=== PATIENT | male | born 2000 | race Caucasian/White ===

== ENCOUNTER 2022-08-19 20:45 | Emergency (ER) | payer BC ==
[~2022-08-19] VITALS: Ht 177.8 cm; Wt 59.4 kg
[2022-08-19] MEDS ORDERED: DEXAMETHASONE SOD PHOSPHATE 10 MG/ML VIAL IM ONE (21:30)
[2022-08-19] MEDS ORDERED: KETOROLAC TROMETHAMINE INJ 60 MG/2 ML VIAL IM ONE (21:30)
--- NOTE | 2022-08-19 21:34 | NUR ---
STREP SWAB DONE AND SENT TO LAB
[2022-08-19] MEDS ORDERED: DEXAMETHASONE SOD PHOSPHATE 10 MG/ML VIAL ONE (21:35)
[2022-08-19] MEDS ORDERED: KETOROLAC TROMETHAMINE INJ 30 MG/ML VIAL ONE (21:35)
[2022-08-19] MEDS ORDERED: AMOX500T2 PO (23:41)
[2022-08-19 23:58] VITALS: BP 118/71
--- NOTE | 2022-08-19 23:59 | NUR ---
Patient discharged to home in stable condition. Written and verbal after care instructions given. Patient verbalizes understanding of instruction.
== END 2022-08-19 23:59 | disposition home or self-care (01) ==
LOC: ER 20:50
DX: J02.9 Acute pharyngitis, unspecified (principal); Z60.2 Problems related to living alone
CPT/HCPCS: 99284; 96372 ×2; 87077; 87070; 87880; J1100; J1885; 86403-TC